=== PATIENT | female | born 1995 | race Caucasian/White ===

== ENCOUNTER 2021-03-13 05:00 | Day surgery (SDC) | payer OTHER ==
[~2021-03-13 05:00] MED LIST: MACROBID 100 M100 MG PO; PERCOCET 5/3251 TAB PO; PYRIDIUM DS200 MG PO; SURFAK240 M1 PO; ZANTAC300 MG PO; ZOFRAN4 MG PO
== END 2021-03-13 14:20 | disposition home or self-care (01) ==
LOC: CIR.AMB 05:00
PROVIDERS: ATTEND Specialist
DX: T83.89XA Other specified complication of genitourinary prosthetic devices, implants and grafts, initial encounter (principal); Z20.822 Contact with and (suspected) exposure to COVID-19